=== PATIENT | female | born 1995 | race Caucasian/White ===

== ENCOUNTER 2018-02-02 16:01 | Emergency (ER) | payer MEDICAID ==
[~2018-02-02] VITALS: Ht 180.3 cm; Wt 160.0 kg
[2018-02-02 16:07] VITALS: BP 132/70
== END 2018-02-02 20:28 | disposition left against medical advice (07) ==
LOC: ER 17:10
DX: R21 Rash and other nonspecific skin eruption (principal)
CPT/HCPCS: 99281